=== PATIENT | female | born 1965 | race Caucasian/White ===

== ENCOUNTER 2019-02-11 18:29 | Inpatient (IN) ==
[2019-02-11] MEDS ORDERED: *HR* Dextrose 50 % in Water (Syg) 50 ML SYRINGE IVP PRN (20:58)
[2019-02-11] MEDS ORDERED: Naloxone 0.4 MG/ML INJ IVP PRN ×2 (20:58→21:04)
[2019-02-11] MEDS ORDERED: Ondansetron ODT 4 MG TAB.RAPDIS SL PRN (20:58)
[2019-02-11] MEDS ORDERED: Nicotine 2 MG GUM BC PRN (20:58)
[2019-02-11] MEDS ORDERED: D5% in Water 1,000 ML IVC PRN (20:58)
[2019-02-11] MEDS ORDERED: 0.9 % Sodium Chloride 1,000 ML IVC ONE (20:58)
[2019-02-11] MEDS ORDERED: Dextrose Gel 15 GM/37.5 ML TUBE PO PRN ×2 (20:58)
[2019-02-11] MEDS ORDERED: 0.9 % Sodium Chloride 1,000 ML IVC SCH (21:00)
[2019-02-11] MEDS ORDERED: Nicotine 14 MG PATCH.TD24 TD SCH (21:15)
[2019-02-11 21:52] LABS: Estimated Average Glucose 140 mg/dl
[2019-02-11] MEDS ORDERED: Ipratropium/Albuterol Neb 3 ML IH PRN (23:44)
[2019-02-12 01:06] LABS: Sodium, Urine 26.2 mEq/L
[2019-02-12 03:56] LABS: Basophils % 0.2 %; Hematocrit 33.8 % (35.3-44.9)
[2019-02-12 03:58] LABS: Hemoglobin 11.8 g/dL (11.5-15.4); Immature Granulocytes % 1.1 % (0-4); Immature Platelets 4.2 % (1.1-6.1); Immature Reticulocyte % 8.9 % (11.0-38.0); Lymphocytes % 8.3 %; Mean Corpuscular HGB Conc 34.9 g/dL (31.6-35.5); Mean Corpuscular Hemoglobin 30.7 pg (28.0-33.3); Mean Platelet Volume 10.5 fL (9.4-12.4); Monocytes # 0.8 K/mcL (0.0-1.3); Monocytes % 7.2 %; Neutrophils # 9.5 K/mcL (1.6-8.9); Red Blood Count 3.84 M/mcL (3.82-4.97); Retculocyte # 0.03 M/mcL (0.05-0.10); Reticulocyte % 0.7 % (1.6-2.8); Segmented Neutrophils % 83.2 %; White Blood Count 11.4 K/mcL (4.3-11.1)
[2019-02-12 03:59] LABS: INR 1.2; Platelet Count 58 K/mcL (140-400); Prothrombin Time 14.1 Seconds (9.4-12.1)
[2019-02-12 04:20] LABS: Platelet Estimate Marked Decrease (Normal); Reactive Lymphocytes Present (Not Present)
[2019-02-12 04:34] LABS: Alanine Aminotransferase 38 Units/L (7-52); Albumin 2.2 g/dL (3.5-5.7); Alkaline Phosphatase 99 Units/L (34-104); Aspartate Amino Transferase 27 Units/L (13-39); BUN/Creatinine Ratio 21 (6-26); Bilirubin,Total 0.5 mg/dL (0.3-1.0); Blood Urea Nitrogen 23 mg/dL (6-20); Calcium 7.2 mg/dL (8.6-10.3); Carbon Dioxide 22 mEq/L (23-29); Chloride 108 mEq/L (98-107); Cholesterol 83 mg/dL (< 200); Globulin 2.3 g/dL (2.4-3.5); Glucose 85 mg/dL (70-105); HDL Cholesterol < 3 mg/dL (40-59); Iron < 10 mcg/dL (50-170); Magnesium 1.5 mg/dL (1.6-2.6); Osmolality,Calculated 287 (280-300); Phosphorous 1.8 mg/dL (2.7-4.5); Potassium 3.7 mEq/L (3.5-5.1); Sodium 137 mEq/L (136-145); Thyroid Stimulating Hormone 0.867 mcIU/mL (0.340-5.600); Total Protein 4.5 g/dL (6.4-8.9); Transferrin 149 mg/dL (203-362); Triglycerides 205 mg/dL (< 150); eGFR For African Americans > 60 (> 60); eGFR For Non-African Americans 51 (> 60)
[2019-02-12] MEDS ORDERED: Acetaminophen 650 MG RECTAL SUPP RC PRN ×3 (04:37→19:56)
[2019-02-12 04:40] LABS: Folate 7.3 ng/mL (3.0-16.0)
[2019-02-12 04:45] LABS: Ferritin 130 ng/mL (10-120)
[2019-02-12] MEDS: Insulin LISPRO 300 UNITS/3 ML VIAL SQ SCH ×2 (04:56→06:03)
[2019-02-12] MEDS ORDERED: Dexamethasone 4 MG/ML VIAL ONE (07:13)
[2019-02-12] MEDS ORDERED: *HR* FentaNYL (PF) 100 MCG/2 ML VIAL ONE (07:13)
[2019-02-12] MEDS ORDERED: *HR* Midazolam HCl 2 MG/2 ML VIAL ONE (07:13)
[2019-02-12] MEDS ORDERED: Lidocaine -MPF 2% 2 ML VIAL ONE (07:13)
[2019-02-12] MEDS ORDERED: Lidocaine HCL 4 ML Topical Solution (Laryng-O-Jet Kit Sterile Pak) TP ONE (07:13)
[2019-02-12] MEDS ORDERED: *HR* Rocuronium Bromide 50 MG/5 ML VIAL ONE (07:13)
[2019-02-12] MEDS ORDERED: *HR* Propofol 200 MG/20 ML VIAL IVP ONE (07:13)
[2019-02-12] MEDS ORDERED: *HR* Succinylcholine 200 MG/10 ML VIAL IVP ONE (07:13)
[2019-02-12] MEDS ORDERED: Ondansetron 4 MG/2 ML VIAL ONE (07:13)
[2019-02-12] MEDS ORDERED: Ringers Solution, Lactated 1,000 ML IVC SCH (07:15)
[2019-02-12] MEDS ORDERED: Isovue-300 50ML VIAL ONE (07:16)
[2019-02-12] MEDS ORDERED: Ondansetron 4 MG/2 ML VIAL IVP ONE (07:21)
[2019-02-12] MEDS ORDERED: *HR* OxyCODONE Immed Rel 5 MG TABLET PO PRN (07:21)
[2019-02-12] MEDS ORDERED: Acetaminophen IV 1,000 MG/100 ML INFUS..BTL IVPB ONE (07:21)
[2019-02-12] MEDS ORDERED: *HR* HYDROmorphone (PF) 1 MG/ML SYRINGE IVP PRN (07:21)
[2019-02-12] MEDS ORDERED: *HR* Promethazine 25 MG/ML VIAL IVP PRN (07:21)
[2019-02-12] MEDS ORDERED: Albuterol 2.5 MG/3 ML NEBULIZER IH PRN (07:21)
[2019-02-12] MEDS ORDERED: *HR* PHENYLEPHRINE 1,000 MCG/10 ML SYRINGE IVP ONE (07:36)
[2019-02-12] MEDS ORDERED: Albumin Human 5% 25.0 GM/500 ML VIAL ONE (08:58)
[2019-02-12] MEDS ORDERED: cefTRIAXone 2,000 MG in 0.9 % Sodium Chloride Mini Bag 100 ML IVPB SCH (09:00)
[2019-02-12] MEDS ORDERED: Naloxone 0.4 MG/ML INJ IVP PRN (10:16)
[2019-02-12] MEDS ORDERED: Ondansetron ODT 4 MG TAB.RAPDIS SL PRN (10:16)
[2019-02-12] MEDS ORDERED: *HR* Dextrose 50 % in Water (Syg) 50 ML SYRINGE IVP PRN (10:16)
[2019-02-12] MEDS ORDERED: Nicotine 2 MG GUM BC PRN (10:16)
[2019-02-12] MEDS ORDERED: D5% in Water 1,000 ML IVC PRN (10:16)
[2019-02-12] MEDS ORDERED: Dextrose Gel 15 GM/37.5 ML TUBE PO PRN ×2 (10:16)
[2019-02-12] MEDS ORDERED: Ipratropium/Albuterol Neb 3 ML IH PRN (10:16)
[2019-02-12] MEDS ORDERED: 0.9 % Sodium Chloride 500 ML IV SCH (10:45)
[2019-02-12] MEDS ORDERED: 0.9 % Sodium Chloride 500 ML IVC SCH (10:45)
[2019-02-12] MEDS: Nicotine 14 MG PATCH.TD24 TD SCH (11:35)
[2019-02-12] MEDS: cefTRIAXone 2,000 MG in 0.9 % Sodium Chloride Mini Bag 100 ML IVPB SCH (11:35)
[2019-02-12] MEDS ORDERED: Insulin LISPRO 300 UNITS/3 ML VIAL SQ SCH (12:00)
[2019-02-12] MEDS: Ringers Solution, Lactated 1,000 ML IVC SCH ×2 (12:22→21:24)
[2019-02-12] MEDS ORDERED: cefTRIAXone 2,000 MG in Water for inj. (sterile) 20 ML IVP SCH (18:00)
[2019-02-12] MEDS ORDERED: *HR* Heparin 5,000 UNIT/ML VIAL SQ SCH ×2 (18:00)
[2019-02-12] MEDS ORDERED: Acetaminophen IV 500 MG/50 ML INFUS..BTL IVPB ONE (23:43)
[2019-02-13] MEDS ORDERED: *HR* LORazepam 2 MG/ML VIAL IVP ONE (02:07)
[2019-02-13 05:58] LABS: Basophils % 0.2 %
[2019-02-13 06:00] LABS: Hematocrit 32.3 % (35.3-44.9); Hemoglobin 11.2 g/dL (11.5-15.4); Immature Granulocytes % 2.2 % (0-4); Immature Platelets 7.5 % (1.1-6.1); Lymphocytes # 1.2 K/mcL (0.6-4.6); Lymphocytes % 10.2 %; Mean Corpuscular HGB Conc 34.7 g/dL (31.6-35.5); Mean Corpuscular Volume 86.6 fL (83.0-100.0); Mean Platelet Volume 12.4 fL (9.4-12.4); Monocytes # 0.6 K/mcL (0.0-1.3); Monocytes % 4.7 %; Neutrophils # 9.9 K/mcL (1.6-8.9); Red Blood Count 3.73 M/mcL (3.82-4.97); Red Cell Distribution Width 14.3 % (11.5-14.5); Segmented Neutrophils % 82.7 %
[2019-02-13 06:01] LABS: Platelet Count 53 K/mcL (140-400)
[2019-02-13 06:15] LABS: BUN/Creatinine Ratio 29 (6-26); Blood Urea Nitrogen 25 mg/dL (6-20); Calcium 7.9 mg/dL (8.6-10.3); Carbon Dioxide 22 mEq/L (23-29); Chloride 109 mEq/L (98-107); Glucose 137 mg/dL (70-105); Osmolality,Calculated 293 (280-300); Potassium 4.3 mEq/L (3.5-5.1); Sodium 138 mEq/L (136-145); eGFR For African Americans > 60 (> 60); eGFR For Non-African Americans > 60 (> 60)
[2019-02-13] MEDS: Ringers Solution, Lactated 1,000 ML IVC SCH (06:20)
[2019-02-13 06:30] LABS: Platelet Estimate Decreased (Normal)
[2019-02-13] MEDS ORDERED: Haloperidol Lactate 5 MG/ML VIAL ONE (07:21)
[2019-02-13] MEDS ORDERED: Haloperidol Lactate 5 MG/ML VIAL IM ONE (07:21)
[2019-02-13] MEDS ORDERED: cefTRIAXone 2,000 MG in 0.9 % Sodium Chloride Mini Bag 100 ML IVPB SCH (09:00)
[2019-02-13] MEDS ORDERED: Nicotine 14 MG PATCH.TD24 TD SCH (09:00)
[2019-02-13] MEDS: Nicotine 14 MG PATCH.TD24 TD SCH (13:26)
[2019-02-13] MEDS: cefTRIAXone 2,000 MG in 0.9 % Sodium Chloride Mini Bag 100 ML IVPB SCH (13:27)
[2019-02-13] MEDS ORDERED: Ringers Solution, Lactated 500 ML IVC ONE (17:32)
[2019-02-13 22:42] LABS: Bilirubin,Urine Negative (Negative); Blood,Urine Large (Negative); Clarity,Urine Turbid (Clear); Color,Urine Yellow (Yellow); Glucose,Urine (UA) Normal (Normal); Ketones,Urine Negative (Negative); Leukocyte Esterase,Urine Moderate (Negative); Nitrite,Urine Negative (Negative); PH,Urine 6.5 pH Units (5.0-8.0); Protein,Urine 100 mg/dL (Neg-Trace); Specific Gravity,Urine 1.021 (1.010-1.025); Urobilinogen,Urine Normal (Normal)
[2019-02-13 22:45] LABS: Bacteria,Urine None Seen per hpf (None-Few); Hyaline Casts,Urine None Seen per lpf (None-Few); RBC,Urine 50-100 per hpf (0-3); Squamous Epithelial Cell,Urine Many per lpf (None-Few); WBC,Urine TNTC per hpf (0-3)
[2019-02-14] MEDS: Ringers Solution, Lactated 1,000 ML IVC SCH ×2 (00:01→06:34)
[2019-02-14 04:40] LABS: Mean Corpuscular Hemoglobin 29.9 pg (28.0-33.3); Red Cell Distribution Width 14.4 % (11.5-14.5)
[2019-02-14 04:42] LABS: Hematocrit 32.5 % (35.3-44.9); Hemoglobin 11.5 g/dL (11.5-15.4); Immature Platelets 11.4 % (1.1-6.1); Mean Corpuscular HGB Conc 35.4 g/dL (31.6-35.5); Mean Corpuscular Volume 84.6 fL (83.0-100.0); Mean Platelet Volume 12.6 fL (9.4-12.4); Red Blood Count 3.84 M/mcL (3.82-4.97); White Blood Count 18.3 K/mcL (4.3-11.1)
[2019-02-14 04:59] LABS: BUN/Creatinine Ratio 31 (6-26); Blood Urea Nitrogen 29 mg/dL (6-20); Calcium 7.6 mg/dL (8.6-10.3); Carbon Dioxide 24 mEq/L (23-29); Chloride 108 mEq/L (98-107); Glucose 95 mg/dL (70-105); Osmolality,Calculated 288 (280-300); Potassium 3.8 mEq/L (3.5-5.1); Sodium 136 mEq/L (136-145); eGFR For African Americans > 60 (> 60); eGFR For Non-African Americans > 60 (> 60)
[2019-02-14] MEDS: Nicotine 14 MG PATCH.TD24 TD SCH (08:50)
[2019-02-14] MEDS: cefTRIAXone 2,000 MG in 0.9 % Sodium Chloride Mini Bag 100 ML IVPB SCH (08:50)
[2019-02-14 11:42] LABS: INR 1.3; Prothrombin Time 14.6 Seconds (9.4-12.1)
[2019-02-14] MEDS ORDERED: Furosemide 40 MG/4 ML VIAL IVP ONE (12:47)
[2019-02-14] MEDS: metroNIDAZOLE 500 MG TABLET PO SCH ×2 (16:10→20:48)
[2019-02-14 16:45] LABS: Basophils % 0.2 %
[2019-02-14 16:47] LABS: Hematocrit 33.6 % (35.3-44.9); Immature Granulocytes % 1.5 % (0-4); Immature Platelets 11.2 % (1.1-6.1); Lymphocytes # 1.7 K/mcL (0.6-4.6); Mean Corpuscular HGB Conc 35.7 g/dL (31.6-35.5); Mean Corpuscular Hemoglobin 29.9 pg (28.0-33.3); Mean Corpuscular Volume 83.8 fL (83.0-100.0); Mean Platelet Volume 11.9 fL (9.4-12.4); Monocytes # 1.1 K/mcL (0.0-1.3); Neutrophils # 12.7 K/mcL (1.6-8.9); Red Blood Count 4.01 M/mcL (3.82-4.97); Segmented Neutrophils % 80.3 %; White Blood Count 15.8 K/mcL (4.3-11.1)
[2019-02-14 17:05] LABS: Platelet Count 71 K/mcL (140-400)
[2019-02-14 17:06] LABS: Hypochromasia Present (Not Present); Macrocytosis Present (Not Present); Platelet Estimate Decreased (Normal)
[2019-02-14] MEDS: Acetaminophen 325 MG TABLET PO PRN (19:22)
[2019-02-14] MEDS ORDERED: Isovue-370 500 ML BOTTLE IVP ONE (20:56)
[2019-02-15 05:33] LABS: Hematocrit 29.6 % (35.3-44.9); Hemoglobin 10.7 g/dL (11.5-15.4); Immature Platelets 8.3 % (1.1-6.1); Mean Corpuscular HGB Conc 36.1 g/dL (31.6-35.5); Mean Corpuscular Hemoglobin 30.5 pg (28.0-33.3); Mean Corpuscular Volume 84.3 fL (83.0-100.0); Mean Platelet Volume 10.9 fL (9.4-12.4); Red Blood Count 3.51 M/mcL (3.82-4.97); White Blood Count 17.1 K/mcL (4.3-11.1)
[2019-02-15 05:50] LABS: BUN/Creatinine Ratio 20 (6-26); Blood Urea Nitrogen 18 mg/dL (6-20); Calcium 7.2 mg/dL (8.6-10.3); Carbon Dioxide 28 mEq/L (23-29); Chloride 99 mEq/L (98-107); Glucose 116 mg/dL (70-105); Osmolality,Calculated 281 (280-300); Potassium 3.4 mEq/L (3.5-5.1); Sodium 134 mEq/L (136-145); eGFR For African Americans > 60 (> 60); eGFR For Non-African Americans > 60 (> 60)
[2019-02-15] MEDS: Acetaminophen 325 MG TABLET PO PRN (06:13)
[2019-02-15] MEDS: Cefepime HCl 2,000 MG in Water for inj. (sterile) 20 ML IVP SCH ×2 (08:43→15:57)
[2019-02-15] MEDS: metroNIDAZOLE 500 MG TABLET PO SCH ×3 (08:43→20:05)
[2019-02-15] MEDS: Nicotine 14 MG PATCH.TD24 TD SCH (08:44)
[2019-02-15 09:21] LABS: Alanine Aminotransferase 16 Units/L (7-52); Albumin 2.2 g/dL (3.5-5.7); Alkaline Phosphatase 61 Units/L (34-104); Aspartate Amino Transferase 12 Units/L (13-39); Bilirubin,Direct 0.2 mg/dL (0.0-0.2); Bilirubin,Indirect 0.6 mg/dL (0.0-1.0); Bilirubin,Total 0.8 mg/dL (0.3-1.0); Globulin 2.3 g/dL (2.4-3.5); Total Protein 4.5 g/dL (6.4-8.9)
[2019-02-15] MEDS ORDERED: *HR* OxyCODONE Immed Rel 5 MG TABLET PO PRN (16:15)
[2019-02-15] MEDS ORDERED: Ibuprofen 600 MG TABLET PO ONE (20:07)
[2019-02-16] MEDS: Cefepime HCl 2,000 MG in Water for inj. (sterile) 20 ML IVP SCH ×2 (00:30→09:17)
[2019-02-16] MEDS: *HR* OxyCODONE Immed Rel 5 MG TABLET PO PRN ×3 (05:38→21:14)
[2019-02-16 05:59] LABS: Hematocrit 28.1 % (35.3-44.9); Hemoglobin 9.9 g/dL (11.5-15.4); Mean Corpuscular HGB Conc 35.2 g/dL (31.6-35.5); Mean Corpuscular Hemoglobin 29.8 pg (28.0-33.3); Mean Corpuscular Volume 84.6 fL (83.0-100.0); Mean Platelet Volume 10.6 fL (9.4-12.4); Platelet Count 187 K/mcL (140-400); Red Blood Count 3.32 M/mcL (3.82-4.97); Red Cell Distribution Width 14.2 % (11.5-14.5); White Blood Count 19.1 K/mcL (4.3-11.1)
[2019-02-16 06:06] LABS: INR 1.7; Prothrombin Time 18.8 Seconds (9.4-12.1)
[2019-02-16 06:19] LABS: BUN/Creatinine Ratio 18 (6-26); Blood Urea Nitrogen 14 mg/dL (6-20); Calcium 6.9 mg/dL (8.6-10.3); Carbon Dioxide 27 mEq/L (23-29); Chloride 103 mEq/L (98-107); Glucose 113 mg/dL (70-105); Osmolality,Calculated 285 (280-300); Potassium 3.4 mEq/L (3.5-5.1); Sodium 137 mEq/L (136-145); eGFR For African Americans > 60 (> 60); eGFR For Non-African Americans > 60 (> 60)
[2019-02-16] MEDS ORDERED: Aminoglycoside Consult 1 EACH MC ONE (07:38)
[2019-02-16] MEDS: metroNIDAZOLE 500 MG TABLET PO SCH ×3 (09:01→21:04)
[2019-02-16] MEDS: Nicotine 14 MG PATCH.TD24 TD SCH (09:02)
[2019-02-16] MEDS ORDERED: *HR* LORazepam 2 MG/ML VIAL IVP ONE (11:12)
[2019-02-16] MEDS: Vancomycin Oral Soln 125 MG/2.5 ML UDC PO SCH ×3 (12:44→21:05)
[2019-02-16] MEDS: Cefepime HCl 2,000 MG in 0.9 % Sodium Chloride Mini Bag 100 ML IVPB SCH (14:52)
[2019-02-17] MEDS: Cefepime HCl 2,000 MG in 0.9 % Sodium Chloride Mini Bag 100 ML IVPB SCH ×3 (00:39→15:44)
[2019-02-17] MEDS ORDERED: Acetaminophen 325 MG TABLET PO ONE (01:10)
[2019-02-17] MEDS ORDERED: Ibuprofen 600 MG TABLET PO ONE (02:03)
[2019-02-17] MEDS: *HR* OxyCODONE Immed Rel 5 MG TABLET PO PRN (04:00)
[2019-02-17 04:29] LABS: Hematocrit 26.1 % (35.3-44.9); Mean Corpuscular HGB Conc 34.5 g/dL (31.6-35.5); Mean Corpuscular Hemoglobin 30.3 pg (28.0-33.3); Mean Corpuscular Volume 87.9 fL (83.0-100.0); Mean Platelet Volume 10.5 fL (9.4-12.4); Platelet Count 265 K/mcL (140-400); Red Blood Count 2.97 M/mcL (3.82-4.97); Red Cell Distribution Width 14.6 % (11.5-14.5); White Blood Count 14.8 K/mcL (4.3-11.1)
[2019-02-17 04:44] LABS: BUN/Creatinine Ratio 15 (6-26); Blood Urea Nitrogen 11 mg/dL (6-20); Carbon Dioxide 23 mEq/L (23-29); Chloride 99 mEq/L (98-107); Glucose 161 mg/dL (70-105); Osmolality,Calculated 273 (280-300); Potassium 3.8 mEq/L (3.5-5.1); Sodium 130 mEq/L (136-145); eGFR For African Americans > 60 (> 60); eGFR For Non-African Americans > 60 (> 60)
[2019-02-17] MEDS: Vancomycin Oral Soln 125 MG/2.5 ML UDC PO SCH ×4 (08:40→21:37)
[2019-02-17] MEDS: Nicotine 14 MG PATCH.TD24 TD SCH (08:40)
[2019-02-17] MEDS: metroNIDAZOLE 500 MG TABLET PO SCH ×3 (08:40→21:37)
[2019-02-17] MEDS: *HR* LORazepam 2 MG/ML VIAL IVP PRN ×2 (09:23→15:45)
[2019-02-17] MEDS ORDERED: Acetaminophen IV 500 MG/50 ML INFUS..BTL IVPB ONE (23:50)
[2019-02-18] MEDS: *HR* LORazepam 2 MG/ML VIAL IVP PRN ×2 (00:47→09:21)
[2019-02-18] MEDS: Cefepime HCl 2,000 MG in 0.9 % Sodium Chloride Mini Bag 100 ML IVPB SCH ×3 (00:52→16:34)
[2019-02-18 07:06] LABS: Hematocrit 27.5 % (35.3-44.9); Hemoglobin 9.4 g/dL (11.5-15.4); Mean Corpuscular HGB Conc 34.2 g/dL (31.6-35.5); Mean Corpuscular Hemoglobin 30.3 pg (28.0-33.3); Mean Corpuscular Volume 88.7 fL (83.0-100.0); Mean Platelet Volume 10.8 fL (9.4-12.4); Platelet Count 352 K/mcL (140-400); White Blood Count 13.5 K/mcL (4.3-11.1)
[2019-02-18 07:28] LABS: BUN/Creatinine Ratio 20 (6-26); Blood Urea Nitrogen 14 mg/dL (6-20); Calcium 7.4 mg/dL (8.6-10.3); Carbon Dioxide 25 mEq/L (23-29); Chloride 102 mEq/L (98-107); Glucose 88 mg/dL (70-105); Osmolality,Calculated 278 (280-300); Sodium 134 mEq/L (136-145); eGFR For African Americans > 60 (> 60); eGFR For Non-African Americans > 60 (> 60)
[2019-02-18] MEDS: Nicotine 14 MG PATCH.TD24 TD SCH (09:02)
[2019-02-18] MEDS: metroNIDAZOLE 500 MG TABLET PO SCH ×3 (09:03→20:36)
[2019-02-18] MEDS ORDERED: 0.9 % Sodium Chloride Mini Bag 100 ML ONE (09:04)
[2019-02-18] MEDS: Vancomycin Oral Soln 125 MG/2.5 ML UDC PO SCH ×4 (12:37→20:37)
[2019-02-18] MEDS ORDERED: Isovue-370 500 ML BOTTLE IVP ONE (13:14)
[2019-02-18 14:44] LABS: Albumin 2.7 g/dL (3.5-5.7); Bilirubin,Direct 0.1 mg/dL (0.0-0.2); Bilirubin,Indirect 0.3 mg/dL (0.0-1.0); Bilirubin,Total 0.4 mg/dL (0.3-1.0); Globulin 2.8 g/dL (2.4-3.5); Total Protein 5.5 g/dL (6.4-8.9)
[2019-02-18 15:14] LABS: Campylobacter by PCR Not detected (Not detect)
[2019-02-18 15:15] LABS: Adenovirus F 40/41 PCR Not detected (Not detect); Astrovirus PCR Not detected (Not detect); C.difficile Toxin A/B Gene PCR DETECTED (Not detect); Cryptosporidium by PCR Not detected (Not detect); Cyclospora cayetanensis PCR Not detected (Not detect); E. coli O157 by PCR Not detected (Not detect); Entamoeba histolytica PCR Not detected (Not detect); Enteroaggregative E.coli(EAEC) Not detected (Not detect); Enteropathogenic E.coli(EPEC) Not detected (Not detect); Enterotoxigenic E.coli (ETEC) Not detected (Not detect); Giardia lamblia PCR Not detected (Not detect); Norovirus GI/GII PCR Not detected (Not detect); Plesiomonas shigelloides PCR Not detected (Not detect); Rotavirus A PCR Not detected (Not detect); Salmonella PCR Not detected (Not detect); Sapovirus PCR Not detected (Not detect); Shig/EnteroinvasiveE coli EIEC Not detected (Not detect); Shigalike tox-prod E coli STEC Not detected (Not detect); Vibrio PCR Not detected (Not detect); Vibrio cholerae PCR Not detected (Not detect); Yersinia enterocolitica PCR Not detected (Not detect)
[2019-02-18] MEDS ORDERED: cefTRIAXone 2,000 MG in Water for inj. (sterile) 20 ML IVP SCH (20:00)
[2019-02-18] MEDS: *HR* OxyCODONE Immed Rel 5 MG TABLET PO PRN (20:44)
[2019-02-19] MEDS ORDERED: Cefepime HCl 2,000 MG in Water for inj. (sterile) 20 ML IVP SCH
[2019-02-19] MEDS ORDERED: *HR* Promethazine 25 MG/ML VIAL IVP ONE (02:36)
[2019-02-19 02:38] LABS: Hematocrit 26.1 % (35.3-44.9); Hemoglobin 8.8 g/dL (11.5-15.4); Mean Corpuscular HGB Conc 33.7 g/dL (31.6-35.5); Mean Corpuscular Hemoglobin 30.4 pg (28.0-33.3); Mean Corpuscular Volume 90.3 fL (83.0-100.0); Mean Platelet Volume 10.1 fL (9.4-12.4); Platelet Count 463 K/mcL (140-400); Red Blood Count 2.89 M/mcL (3.82-4.97); Red Cell Distribution Width 14.8 % (11.5-14.5); White Blood Count 13.1 K/mcL (4.3-11.1)
[2019-02-19] MEDS ORDERED: Ondansetron 4 MG/2 ML VIAL IVP ONE (02:38)
[2019-02-19 02:57] LABS: BUN/Creatinine Ratio 18 (6-26); Blood Urea Nitrogen 14 mg/dL (6-20); Calcium 7.5 mg/dL (8.6-10.3); Carbon Dioxide 24 mEq/L (23-29); Chloride 102 mEq/L (98-107); Glucose 159 mg/dL (70-105); Osmolality,Calculated 286 (280-300); Potassium 3.7 mEq/L (3.5-5.1); Sodium 136 mEq/L (136-145); eGFR For African Americans > 60 (> 60); eGFR For Non-African Americans > 60 (> 60)
[2019-02-19] MEDS: *HR* OxyCODONE Immed Rel 5 MG TABLET PO PRN ×2 (08:46→15:39)
[2019-02-19] MEDS: metroNIDAZOLE 500 MG TABLET PO SCH ×3 (08:46→19:58)
[2019-02-19] MEDS: Vancomycin Oral Soln 125 MG/2.5 ML UDC PO SCH ×4 (08:46→19:58)
[2019-02-19] MEDS: Cefepime HCl 2,000 MG in 0.9 % Sodium Chloride Mini Bag 100 ML IVPB SCH ×2 (08:47→15:30)
[2019-02-19] MEDS: Nicotine 14 MG PATCH.TD24 TD SCH (08:48)
[2019-02-19] MEDS: *HR* LORazepam 2 MG/ML VIAL IVP PRN (16:51)
[2019-02-20] MEDS: Cefepime HCl 2,000 MG in 0.9 % Sodium Chloride Mini Bag 100 ML IVPB SCH ×3 (00:22→15:51)
[2019-02-20] MEDS ORDERED: Ibuprofen 600 MG TABLET PO ONE (01:23)
[2019-02-20 05:30] LABS: Hematocrit 29.4 % (35.3-44.9); Mean Corpuscular Hemoglobin 29.9 pg (28.0-33.3); Mean Platelet Volume 9.8 fL (9.4-12.4); Platelet Count 593 K/mcL (140-400); Red Blood Count 3.34 M/mcL (3.82-4.97); White Blood Count 11.7 K/mcL (4.3-11.1)
[2019-02-20 05:49] LABS: BUN/Creatinine Ratio 16 (6-26); Blood Urea Nitrogen 14 mg/dL (6-20); Calcium 7.8 mg/dL (8.6-10.3); Carbon Dioxide 30 mEq/L (23-29); Chloride 99 mEq/L (98-107); Glucose 96 mg/dL (70-105); Osmolality,Calculated 280 (280-300); Potassium 4.2 mEq/L (3.5-5.1); Sodium 135 mEq/L (136-145); eGFR For African Americans > 60 (> 60); eGFR For Non-African Americans > 60 (> 60)
[2019-02-20] MEDS: metroNIDAZOLE 500 MG TABLET PO SCH ×3 (08:03→20:13)
[2019-02-20] MEDS: Vancomycin Oral Soln 125 MG/2.5 ML UDC PO SCH ×4 (08:03→20:13)
[2019-02-20] MEDS: Nicotine 14 MG PATCH.TD24 TD SCH (08:04)
[2019-02-20] MEDS: *HR* LORazepam 2 MG/ML VIAL IVP PRN ×3 (10:54→23:00)
[2019-02-20] MEDS: *HR* OxyCODONE Immed Rel 5 MG TABLET PO PRN ×2 (16:11→23:01)
[2019-02-20 17:38] LABS: Adenovirus Not Detected (Not Detect); Coronavirus 229E Not Detected (Not Detect); Coronavirus HKU1 Not Detected (Not Detect)
[2019-02-20 17:39] LABS: Bordetella Pertussis Not Detected (Not Detect); Chlamydophila pneumoniae Not Detected (Not Detect); Coronavirus NL63 Not Detected (Not Detect); Coronavirus OC43 Not Detected (Not Detect); Human Metapneumovirus Not Detected (Not Detect); Human Rhinovirus/Enterovirus Not Detected (Not Detect); Influenza A Subtype 2009 H1 Not Detected (Not Detect); Influenza A Untypeable Not Detected (Not Detect); Influenza B Not Detected (Not Detect); Mycoplasma pneumoniae Not Detected (Not Detect); Parainfluenza Virus 1 Not Detected (Not Detect); Parainfluenza Virus 2 Not Detected (Not Detect); Parainfluenza Virus 3 Not Detected (Not Detect); Parainfluenza Virus 4 Not Detected (Not Detect); Respiratory Syncytial Virus Not Detected (Not Detect)
[2019-02-21] MEDS: Cefepime HCl 2,000 MG in 0.9 % Sodium Chloride Mini Bag 100 ML IVPB SCH ×2 (00:09→09:20)
[2019-02-21] MEDS ORDERED: *HR* Enoxaparin 40 MG/0.4 ML SYRINGE SQ SCH (06:00)
[2019-02-21 07:21] LABS: Hematocrit 27.2 % (35.3-44.9); Hemoglobin 8.9 g/dL (11.5-15.4); Mean Corpuscular HGB Conc 32.7 g/dL (31.6-35.5); Mean Corpuscular Hemoglobin 29.8 pg (28.0-33.3); Mean Platelet Volume 10.8 fL (9.4-12.4); Platelet Count 507 K/mcL (140-400); Red Blood Count 2.99 M/mcL (3.82-4.97); Red Cell Distribution Width 14.8 % (11.5-14.5); White Blood Count 10.6 K/mcL (4.3-11.1)
[2019-02-21 07:42] VITALS: BP 95/55
[2019-02-21 07:42] LABS: BUN/Creatinine Ratio 17 (6-26); Blood Urea Nitrogen 12 mg/dL (6-20); Calcium 7.9 mg/dL (8.6-10.3); Carbon Dioxide 28 mEq/L (23-29); Chloride 99 mEq/L (98-107); Glucose 100 mg/dL (70-105); Osmolality,Calculated 276 (280-300); Potassium 4.3 mEq/L (3.5-5.1); Sodium 133 mEq/L (136-145); eGFR For African Americans > 60 (> 60); eGFR For Non-African Americans > 60 (> 60)
[2019-02-21] MEDS: metroNIDAZOLE 500 MG TABLET PO SCH (09:22)
[2019-02-21] MEDS: Vancomycin Oral Soln 125 MG/2.5 ML UDC PO SCH (09:22)
[2019-02-21] MEDS: Nicotine 14 MG PATCH.TD24 TD SCH ×2 (09:22→09:32)
== END 2019-02-21 11:37 | disposition home or self-care (01) | DRG 720 ==
LOC: 2ANU → SUATTDRO 20:04 → 2ANU 02-17 16:18
PROVIDERS: ADMIT Internal Medicine; ATTEND Internal Medicine